=== PATIENT | male | born 1970 | race Caucasian/White ===

== ENCOUNTER 2021-01-02 11:31 | Emergency (ER) | payer OTHER ==
[2021-01-02 13:31] LABS: BASOPHIL 1.4 % (0-2); EOSINOPHIL 3.5 % (0-5); HCT 48.2 % (42.0-52.0); HGB 16.3 g/dl (13.2-18.0); MCHC 33.8 g/dL (32.0-36.0); MCV 94.5 fL (78.0-100.0); MONOCYTE 12.1 % (0-12); MPV 10.1 fL (6.0-9.5); NEUTROPHIL 55.7 % (41-80); NRBC 0; PLT 412 K/uL (150-400); RDW 13.9 % (11.5-14.0)
[2021-01-02 13:32] LABS: WBC 6.4 K/uL (4.0-10.5)
[2021-01-02 14:06] LABS: ALBUMIN 3.7 g/dL (3.4-5.0); BUN/CREAT RATIO (CALC) 17.5 RATIO; CREATININE 0.8 mg/dL (0.67-1.17); GLOBULIN (CALCULATION) 4.3 g/dL; POTASSIUM 4.7 mmol/L (3.5-5.1)
[2021-01-03] MEDS ORDERED: ASPIRIN EC81 M1 PO (09:01)
== END 2021-01-02 14:20 | disposition home or self-care (01) ==
LOC: FER 11:31
PROVIDERS: Emergency Medicine
DX: R42 Dizziness and giddiness (principal); Z88.5 Allergy status to narcotic agent
CPT/HCPCS: 36415; 80053; 85025; 93005

== ENCOUNTER 2021-01-03 04:01 | Emergency (ER) | payer OTHER ==
[2021-01-03 04:25] LABS: BASOPHIL 1.1 % (0-2); EOSINOPHIL 6.2 % (0-5); HCT 47.7 % (42.0-52.0); LYMPHOCYTE 43.1 % (15-48); MCH 32.1 pg (25.0-31.0); MCHC 33.5 g/dL (32.0-36.0); MCV 95.6 fL (78.0-100.0); MONOCYTE 11.9 % (0-12); MPV 10.1 fL (6.0-9.5); NEUTROPHIL 37.3 % (41-80); NRBC 0; PLT 410 K/uL (150-400); RBC 4.99 M/uL (4.70-6.00); RDW 13.9 % (11.5-14.0); WBC 9.8 K/uL (4.0-10.5)
[2021-01-03 04:38] LABS: ALBUMIN 3.7 g/dL (3.4-5.0); BILIRUBIN - TOTAL 0.6 mg/dL (0.2-1.0); BUN/CREAT RATIO (CALC) 23.5 RATIO; CREATININE 0.81 mg/dL (0.67-1.17); GLOBULIN (CALCULATION) 3.9 g/dL; POTASSIUM 4.3 mmol/L (3.5-5.1); TOTAL PROTEIN 7.6 g/dL (6.4-8.2)
[2021-01-03 05:09] LABS: C-REACTIVE PROTEIN 0.2 mg/dL (<=0.90); MAGNESIUM 1.8 mg/dL (1.8-2.4)
[2021-01-03 08:23] LABS: CHOLESTEROL 190 mg/dL (<200); HDL 29 mg/dL (40-60); LDL - DIRECT 137 mg/dL (<100); TRIGLYCERIDES 149 mg/dL (<150)
[2021-01-03] MEDS ORDERED: ASPIRIN EC81 M1 PO (09:01)
== END 2021-01-03 09:37 | disposition home or self-care (01) ==
LOC: FER 04:01
PROVIDERS: Emergency Medicine; Emergency Medicine Emergency Medical Services
DX: R07.89 Other chest pain (principal); R51.9 Headache, unspecified
CPT/HCPCS: 36415; 71045; 80053; 80061; 83735; 83880; 84484; 85025; 85379; 86140; 93005; J7030

== ENCOUNTER 2021-03-07 18:38 | Emergency (ER) | payer OTHER ==
[~2021-03-07 18:38] MED LIST: ASPIRIN EC81 M1 PO
[2021-03-07 19:32] LABS: BASOPHIL 0.7 % (0-2); EOSINOPHIL 0.8 % (0-5); HCT 49.1 % (42.0-52.0); HGB 16.2 g/dl (13.2-18.0); LYMPHOCYTE 11.6 % (15-48); MCH 31.5 pg (25.0-31.0); MCV 95.3 fL (78.0-100.0); MONOCYTE 10.6 % (0-12); MPV 10.5 fL (6.0-9.5); NEUTROPHIL 75.5 % (41-80); NRBC 0; PLT 387 K/uL (150-400); RBC 5.15 M/uL (4.70-6.00); WBC 7.7 K/uL (4.0-10.5)
[2021-03-07 19:45] LABS: ALBUMIN 4.1 g/dL (3.4-5.0); BILIRUBIN - TOTAL 0.4 mg/dL (0.2-1.0); BUN/CREAT RATIO (CALC) 11.7 RATIO; CREATININE 1.03 mg/dL (0.67-1.17); GLOBULIN (CALCULATION) 4.1 g/dL; POTASSIUM 4.2 mmol/L (3.5-5.1); TOTAL PROTEIN 8.2 g/dL (6.4-8.2)
[2021-03-07 19:54] LABS: LACTIC ACID 2.5 mmol/L (0.4-1.9)
[2021-03-07] MEDS ORDERED: LEVAQUIN750 MG PO (23:26)
[2021-03-07] MEDS ORDERED: ONDANSETRON ODT4 MG SL (23:26)
[2021-03-07] MEDS ORDERED: PERCOCET 5-3251 EACH PO (23:26)
[2021-03-15] MEDS ORDERED: LEXAPRO 10MG TA10 MG PO (15:12)
[2021-04-04] MEDS ORDERED: TRAMADOL HCL50 MG PO (13:17)
== END 2021-03-07 23:50 | disposition home or self-care (01) ==
LOC: FER 18:38
PROVIDERS: Emergency Medicine Emergency Medical Services
DX: R10.11 Right upper quadrant pain (principal); Z88.5 Allergy status to narcotic agent
CPT/HCPCS: 36415; 80053; 82150; 83605; 83690; 84145; 85025; J1170; J1885; J2405; J7030

== ENCOUNTER 2021-03-09 10:39 | Emergency (ER) | payer OTHER ==
[~2021-03-09 10:39] MED LIST changes: +LEVAQUIN750 MG PO; +ONDANSETRON ODT4 MG SL; +PERCOCET 5-3251 EACH PO
[2021-03-09 12:32] LABS: BILIRUBIN NEGATIVE (NEGATIVE); BLOOD NEGATIVE Ery/uL (NEGATIVE); CLARITY CLEAR (CLEAR); COLOR YELLOW (YELLOW); GLUCOSE (U) NORMAL (NORMAL); LEUKOCYTES NEGATIVE Leu/uL (NEGATIVE); NITRITE NEGATIVE (NEGATIVE); PROTEIN TRACE (LOW) mg/dL (NEGATIVE); UROBILINOGEN 0.2 mg/dL (0.2-1.0); pH 6.5 (5.0-9.0)
[2021-03-09 12:42] LABS: MUCOUS TRACE; URINARY WBC RARE
[2021-03-09 12:45] LABS: BASOPHIL 0.4 % (0-2); EOSINOPHIL 1.2 % (0-5); HCT 49.2 % (42.0-52.0); HGB 15.9 g/dl (13.2-18.0); MCH 31.4 pg (25.0-31.0); MCHC 32.3 g/dL (32.0-36.0); MCV 97.2 fL (78.0-100.0); MONOCYTE 9.9 % (0-12); MPV 10.6 fL (6.0-9.5); NEUTROPHIL 73.8 % (41-80); NRBC 0; PLT 344 K/uL (150-400); RBC 5.06 M/uL (4.70-6.00); RDW 14.3 % (11.5-14.0); WBC 6.9 K/uL (4.0-10.5)
[2021-03-09 12:46] LABS: LYMPHOCYTE 13.8 % (15-48)
[2021-03-09 12:54] LABS: ALBUMIN 3.3 g/dL (3.4-5.0); BILIRUBIN - TOTAL 0.4 mg/dL (0.2-1.0); BUN/CREAT RATIO (CALC) 11.1 RATIO; CREATININE 1.08 mg/dL (0.67-1.17); POTASSIUM 4.5 mmol/L (3.5-5.1); TOTAL PROTEIN 7.3 g/dL (6.4-8.2)
[2021-03-09] MEDS ORDERED: URSODIOL300 MG PO (14:57)
[2021-03-15] MEDS ORDERED: LEXAPRO 10MG TA10 MG PO (15:12)
[2021-04-04] MEDS ORDERED: TRAMADOL HCL50 MG PO (13:17)
== END 2021-03-09 15:15 | disposition home or self-care (01) ==
LOC: FER 10:39
PROVIDERS: Emergency Medicine
DX: K80.50 Calculus of bile duct without cholangitis or cholecystitis without obstruction (principal); Z88.5 Allergy status to narcotic agent; Z20.822 Contact with and (suspected) exposure to COVID-19
CPT/HCPCS: 36415; 78227; 80053; 81001; 82150; 83690; 85025; A9537; J1885; J2405; J2805; U0002

== ENCOUNTER → 2021-03-19 | Day surgery (SDC) | payer OTHER ==
[~2021-03-19] VITALS: Ht 185.4 cm; Wt 86.2 kg
[~2021-03-19] MED LIST changes: +LEXAPRO 10MG TA10 MG PO; +TRAMADOL HCL50 MG PO; +URSODIOL300 MG PO
== END | disposition home or self-care (01) ==
LOC: FAS 09:39
DX: Z12.11 Encounter for screening for malignant neoplasm of colon (principal); K82.8 Other specified diseases of gallbladder; Z88.5 Allergy status to narcotic agent; Z79.82 Long term (current) use of aspirin; Z79.899 Other long term (current) drug therapy
CPT/HCPCS: J2250; J2704; J7120

== ENCOUNTER → 2021-04-04 | Day surgery (SDC) | payer OTHER ==
[~2021-04-04] VITALS: Ht 185.4 cm; Wt 86.2 kg
== END | disposition home or self-care (01) ==
LOC: FAS 08:00
DX: K81.1 Chronic cholecystitis (principal); K82.8 Other specified diseases of gallbladder; Z88.5 Allergy status to narcotic agent; Z90.81 Acquired absence of spleen
CPT/HCPCS: J0694; J1100; J2250; J2405; J2704; J3010; J7120